=== PATIENT | male | born 1950 | race Caucasian/White ===

== ENCOUNTER → 2017-01-28 | Outpatient (CLI) | payer OTHER | LOC: FIMAGING 10:26 | PROVIDERS: ATTEND Internal Medicine Endocrinology, Diabetes & Metabolism | DX: M81.0 Age-related osteoporosis without current pathological fracture (principal) ==

== ENCOUNTER 2018-01-04 11:23 | Observation (INO) | payer OTHER ==
--- NOTE | 2018-01-04 11:53 | EDPHY ---
H & P Stated Complaint: r hand cellulitis post cat bite tuesday - Personal History Current Tetanus/Diphtheria Vaccine: Yes Tetanus Vaccine Date: 2013 - Medical/Surgical History Hx Asthma: No Hx Chronic Respiratory Disease: No Hx Diabetes: No Hx Cardiac Disease: No Hx Renal Disease: No Hx Cirrhosis: Yes Hx Alcoholism: No Hx HIV/AIDS: No Hx Splenectomy or Spleen Trauma: No Other PMH: osteoporosis, liver transplant 2008, Hep C-cleared - Social History Smoking Status: Never smoked Time Seen by Provider: 01/04/18 11:39 HPI/ROS: Chief complaint: Right hand infection from cat bite History of present illness: This is a 67-year-old male, immunocompromised as he has had a liver transplant in 2008 and is on antirejection medication, who presents to the emergency department for a right hand infection from a cat bite. He was bitten by his roommate's cat 2 days ago. He started to develope pain and redness to the hand. He did go to urgent care yesterday, x-rays were obtained and negative. He was started on Augmentin 875mg twice daily. He has taken 3 doses of the Augmentin but he states symptoms have significantly worsened. He denies other associated signs or symptoms including no red streaking up the hand, no fevers, no other injury. Review of systems: A 10 point review of systems was obtained and other than described above was negative (Sherman Allen) - Physical Exam Exam: General Appearance: Alert, nontoxic. Eyes: Pupils equal and round no injection. Respiratory: Chest is non tender, lungs are clear to auscultation. Cardiovascular: Regular rate and rhythm. Radial pulses 2+. Capillary refill brisk in all digits of the right hand. Gastrointestinal: Abdomen is soft and non tender, no masses, bowel sounds normal. Musculoskeletal: Patient is having difficulty moving his right 2nd and 3rd digit. He is moving the other digits and the right wrist well. Ambulating well. Skin: Erythema and edema to the dorsum of the right hand with extension onto the 1st and 2nd digit. No lymphedema. It is warm. Tender. No induration or fluctuance. Neurological: Alert and oriented times. Sensation intact throughout the right hand. (Sherman Allen) Constitutional: Initial Vital Signs Temperature (C) 36.4 C 01/04/18 11:28 Heart Rate 67 01/04/18 11:28 Respiratory Rate 18 01/04/18 11:28 Blood Pressure 127/85 H 01/04/18 11:28 O2 Sat (%) 94 01/04/18 11:28 O2 Delivery Mode Room Air Allergies/Adverse Reactions: furosemide [From Lasix] Allergy (Intermediate, Verified 01/04/18 11:27) Other-Enter Comments Home Medications: Medication Instructions Recorded Mycophenolate Sodium [Myfortic] 720 mg PO BID 01/10/15 Tacrolimus 2 mg PO BID 10/30/15 Amoxicillin/Clavulanate Pot 875 mg PO BID 01/04/18 [Augmentin 875 MG TAB (*)] Calcium Citrate 200 mg PO DAILY 01/04/18 Cholecalciferol Vit D3 [Vitamin D3 1,000 units PO DAILY 01/04/18 (*)] Herbals/Supplements -Info Only 1 ea PO DAILY 01/04/18 Multivitamins [Multivitamin (*)] 1 each PO DAILY 01/04/18 Pravastatin Sodium 40 mg PO HS 01/04/18 Medical Decision Making ED Course/Re-evaluation: Patient is discussed with my secondary supervising physician Dr. Amparo Frank. Patient presents to the emergency department with a worsening right hand infection after being bit by a cat. He is immunocompromised having a liver transplant non anti rejection medication. He has failed outpatient therapy with Augmentin. X-rays from yesterday were reviewed. Baseline blood studies were obtained and unremarkable. Patient will be admitted to the hospitalist service for further care. I have consulted with Infectious Disease, Dr. Jyoti Marin, she recommends Unasyn 3 g, this is ordered after blood studies obtained. The plan has been discussed with the patient who voiced understanding and agreement with it. (Sherman Allen) Differential Diagnosis: Included but not limited to cellulitis, abscess, tenosynovitis, lymphangitis, osteomyelitis (Sherman Allen) Other Provider: The patient was evaluated and managed by the Physician Drug And Alcohol Counselor. I discussed the patient's presentation and course with the midlevel provider with them and agree with the evaluation. My co-signature indicates that I have reviewed this chart and I agree with the findings and plan of care as documented. I am the secondary supervising physician. (Amparo Frnak) - Data Points Laboratory Results: Laboratory Results 01/04/18 11:55 01/04/18 11:55 Medications Given: Discontinued Medications Ampicillin Sodium/Sulbactam Sodium (Unasyn) 3 gm IV EDNOW ONE PRN Reason: Protocol Stop: 01/04/18 13:35 Last Admin: 01/04/18 14:24 Dose: 3 gm Ampicillin Sodium/Sulbactam Sodium (Unasyn) 3 gm IV Q6H JULIANA Stop: 02/03/18 20:29 Last Admin: 01/05/18 08:20 Dose: 3 gm Calcium Carbonate (Oyster Shell Calcium) 500 mg PO DAILY JULIANA Stop: 07/04/18 08:59 Last Admin: 01/05/18 08:27 Dose: 500 mg Cholecalciferol (Vitamin D) 1,000 units PO DAILY JULIANA Stop: 07/04/18 08:59 Last Admin: 01/05/18 08:27 Dose: 1,000 units Enoxaparin Sodium (Lovenox) 40 mg SC DAILY JULIANA Stop: 07/04/18 08:59 Last Admin: 01/05/18 08:30 Dose: Not Given Ibuprofen (Motrin) 800 mg PO Q8H JULIANA Stop: 07/03/18 14:59 Last Admin: 01/05/18 06:34 Dose: Not Given Multivitamins (Tab-A-Davin) 1 each PO DAILY JULIANA Stop: 07/04/18 08:59 Last Admin: 01/05/18 08:27 Dose: 1 each Mycophenolate Sodium (Myfortic) 720 mg PO BID JULIANA Stop: 07/03/18 20:59 Last Admin: 01/05/18 08:27 Dose: 720 mg Pravastatin Sodium (Pravachol) 40 mg PO HS JULIANA Stop: 07/03/18 20:59 Last Admin: 01/04/18 22:49 Dose: 40 mg Tacrolimus (Prograf) 2 mg PO BID JULIANA Stop: 07/03/18 20:59 Last Admin: 01/05/18 08:27 Dose: 2 mg Departure - Departure Disposition: [facility] Acute Clinical Impression: Cellulitis of hand Condition: Good
[2018-01-04 12:08] LABS: PLATELET COUNT 171 10^3/uL (150-400)
[2018-01-04] MEDS ORDERED: ONDANSETRON 4 MG/2 ML VIAL IVP PRN (12:56)
[2018-01-04] MEDS ORDERED: ACETAMINOPHEN 325 MG TAB PO PRN (12:56)
[2018-01-04] MEDS ORDERED: ONDANSETRON DISINTEGRATING 4 MG TAB PO PRN (12:56)
[2018-01-04] MEDS ORDERED: AMPICILLIN/SULBACTAM 3 GM VIAL IV ONE (13:34)
--- NOTE | 2018-01-04 14:50 | GHP ---
[f rep st] HISTORY AND PHYSICAL DATE OF ADMISSION: 01/04/2018 CHIEF COMPLAINT: Cat bite. HISTORY OF PRESENT ILLNESS: The patient is a 67-year-old male who presented to the emergency room after complaining of hand infection secondary to a cat bite. He was bitten by his roommate's cat 2 days ago and started to develop pain and redness of the hand. He went to the urgent care yesterday, 1 day prior, where x-rays were obtained and negative. He was started on Augmentin b.i.d. and he has taken 3 doses of Augmentin. His symptoms are worsening, have not significantly improved. He denies any fever, sweats, or night chills. He denies any dyspnea, shortness of breath, or chest pain. He denies any red streaking up his hand. No other injuries or complaints. He denies any nausea, vomiting, or diarrhea. PAST MEDICAL HISTORY: Notable for liver transplant in 2008, osteoporosis, hepatitis C. PAST SURGICAL HISTORY: Liver transplant. REVIEW OF SYSTEMS: A comprehensive 10-point review of systems is negative other than noted in the HPI. SOCIAL HISTORY: The patient has a roommate. He denies any tobacco or alcohol use. PHYSICAL EXAM: GENERAL: The patient is alert. VITAL SIGNS: Afebrile at 36.4 , pulse is 67, respiratory rate is 18, blood pressure is 127/85. He is saturating 94% on room air. HEENT: Normocephalic, atraumatic. Mucosal membranes are moist. Pupils equal, round, reactive to light. RESPIRATORY: Lungs are clear to auscultation bilaterally. No rhonchi or wheezes noted. CARDIOVASCULAR: Regular rate and rhythm. No gallop or murmur appreciated. GASTROINTESTINAL/ABDOMEN: Bowel sounds are positive. Soft and nontender. There is no guarding or rigidity noted. MUSCULOSKELETAL: The patient is having difficulty moving his right 2nd and 3rd digits of his hand. Other extremities are intact without any clubbing or cyanosis. SKIN: There is erythema and edema on the dorsal side of the right hand and 1st and 2nd digits. There are no other rashes or lesions identified. NEUROLOGICAL: The patient is focally intact. ALLERGIES: Lasix. HOME MEDICATIONS: Myfortic, tacrolimus, Augmentin, calcium citrate, vitamin D, multivitamin. FAMILY HISTORY: Reviewed and noncontributory. LABORATORY EVALUATION: CBC and metabolic panel are essentially benign. ASSESSMENT/PLAN: The patient is a 67-year-old male who presented to the emergency room with complaints of a cat bite with worsening symptoms after being initiated on 3 doses of Augmentin. He is being admitted to the hospital for intravenous antibiotic therapy. He will be initiated on intravenous Unasyn during his hospital course. There does not appear to be any fluid collections at this time. No further radiological evaluation will be done other than the x- ray from 1 day prior. We will continue to treat his symptoms supportively. His tetanus is up to date. Further action will be taken as needed during the patient's hospitalization. /[id number]/MODL MTDD
[2018-01-04] MEDS: IBUPROFEN 800 MG TAB PO SCH ×2 (15:03→23:03)
--- NOTE | 2018-01-04 16:42 | GCON ---
[f rep st] CONSULTATION INFECTIOUS DISEASE CONSULTATION DATE OF CONSULTATION: 01/04/2018 REFERRING PHYSICIAN: Laney Calixto NP REASON FOR CONSULTATION: Right hand cellulitis following cat bite. HISTORY OF PRESENT ILLNESS: 67-year-old male who underwent a liver transplant for hepatitis C in from an unrelated donor and subsequently received treatment for hepatitis C years later with [facility], now cured of hepatitis C, who was in his usual state of health on chronic immunosuppression includ ing tacrolimus 2 g b.i.d. and mycophenolate 750 mg twice daily until on 01/02/2018 patient was bit by his roommate's cat with an unknown vaccination status. The patient's Tdap is up to date, last recei con in 2013. Initially, patient just cleaned the area, but the following day his right hand knuckle started swelling, and he went to urgent care where they started him on Augmentin. Of note, patient i s left-hand dominant. After taking 3 doses of antibiotics but no hand elevation, his swelling was wo rse and, he re-presented to the emergency room today. The patient underwent an x-ray on the ch showed soft tissue swelling, no fracture. The patient does report associated subjective fevers. The pain is localized to the dorsum of his hand, and he is still able to move his fingers. He denies any history of MRSA. His last antibiotic use was a single dose after he went to the dentist. He ca nnot remember the last time he received a longer course of antibiotics. No known history of MRSA. PAST MEDICAL HISTORY: 1. Cirrhosis requiring liver transplant due to hepatitis C in 2008. The patient also has received H arvoni for treatment and is cured of hepatitis C. 2. Osteoporosis. 3. Hyperlipidemia. PAST SURGICAL HISTORY: Liver transplant. 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 He has 60 chickens, 2 dogs, 3 cats. No livestock. No tobacco or alcohol. FAMILY HISTORY: Negative for cancer, coronary artery disease. ALLERGIES: To Lasix. MEDICATIONS: Augmentin 875 twice daily, which was discontinued and he was started on Unasyn 3 g IV q .6. He is also on vitamin D, calcium supplementation, Lovenox, Motrin, multivitamin, Zofran, Pravach ol 40 mg daily. He is on Prograf 2 g p.o. b.i.d. and mycophenolate 720 twice daily. REVIEW OF SYSTEMS: A complete 10-point review of systems was performed and is negative except as men tioned in the HPI. PHYSICAL EXAM: VITAL SIGNS: BP 122/89, heart rate 72, respiratory rate 18, saturation 92% on room a ir, temperature 36.6. He has been afebrile throughout his hospital course. GENERAL: This is a very pleasant male, lying in bed with no acute distress. HEENT: Good dentition. Moist mucous membranes . No ulcer, ulcerations or exudate. NECK: Supple. No lymphadenopathy. CARDIOVASCULAR: Regular r ate and rhythm with a faint systolic murmur. CHEST: Clear to auscultation bilaterally. He had mild bilateral gynecomastia. ABDOMEN: Soft, nontender. Bowel sounds are present. He has a long right upper quadrant scar that is well healed. No fluid wave. EXTREMITIES: No clubbing, cyanosis, or tish ma. No joint swelling. Right hand: Patient has erythema and swelling associated with the 2nd digit and the dorsum of his hand overlying the 1st and 2nd metatarsals up to his wrist. There is some ten derness over the 1st metatarsal, but range of motion of his 2nd and 3rd fingers is mostly intact. Ra dial pulses 2+, and no evidence of compartment syndrome. SKIN: No rashes were noted including no sp linter hemorrhages. LABORATORY: White count 8.3, hematocrit 47, platelets of 171, 75% neutrophils, 12% lymphocytes. Cre atinine 0.8. Blood cultures were not collected. IMAGING: As per HPI. ASSESSMENT AND PLAN: 67-year-old male on chronic immunosuppression following liver transplant who pr esents with cellulitis of the hand following a cat bite. Reviewed pertinent likely pathogens includi ng Staphylococcus, Streptococcus, as well as the oral ruel of the cat including anaerobes and pasteu rella. Suspect failure to improve may be just related to he is early in the antibiotic course as wel l as lack of elevation. Exam currently less suggestive of tenosynovitis. 1. No further imaging at this time. 2. Agree with transition of Augmentin to IV Unasyn and to clinically monitor. 3. The patient strongly encouraged to elevate his hand. 4. Patient strongly desires discharge tomorrow. Will reassess first thing in the morning after elev ation and IV antibiotics overnight. 5. Thank you for this consultation. Will continue to follow. /[id number]/MODL
[2018-01-04] MEDS ORDERED: AMPICILLIN/SULBACTAM 3 GM in NS 100 ML IV SCH (20:30)
[2018-01-04 20:43] VITALS: RESP 16
[2018-01-04] MEDS ORDERED: PRAVASTATIN SODIUM 40 MG TAB PO SCH (21:00)
[2018-01-04] MEDS: MYCOPHENOLATE SODIUM 180 MG TAB.DR PO SCH (22:48)
[2018-01-04] MEDS: AMPICILLIN/SULBACTAM 3 GM VIAL IV SCH (22:48)
[2018-01-04] MEDS: TACROLIMUS 1 MG CAP PO SCH (22:49)
[2018-01-05] MEDS: AMPICILLIN/SULBACTAM 3 GM VIAL IV SCH ×2 (03:32→08:20)
[2018-01-05] MEDS: IBUPROFEN 800 MG TAB PO SCH (06:34)
[2018-01-05 07:34] VITALS: BP 105/75; PULSE 58; TEMP 97.9; O2SAT 90
--- NOTE | 2018-01-05 08:26 | PCMIDPN ---
Assessment/Plan: # R hand cellulitis s/p cat bite, improved with IV Unasyn overnight --continue elevation --dc and resume Augmentin 875 mg twice daily --reviewed antibiotic risks, side effects. If greater than 3 loose stools, severe abdominal cramping or fever please call our office for evaluation of potential complication of all antibiotics, called C. difficile-associated diarrhea . --no f/u with ID unless problems Subjective: Patient feeling significantly improved. Denies side effects to IV Unasyn Objective: Vital Signs Temp Pulse Resp BP Pulse Ox 36.6 C 58 L 16 105/75 90 L 01/05/18 07:30 01/05/18 07:30 01/05/18 07:30 01/05/18 07:30 01/05/18 07:30 - Physical Exam General Appearance: alert, no apparent distress Respiratory: No accessory muscle use Extremities: swelling (Right hand swelling approximately 40% improved), erythema (Erythema over dorsum of right hand and 2nd, 3rd digit 50% improved. No evidence of tenosynovitis on exam) Skin: No rash Neuro/Psych: alert, normal mood/affect, oriented x 3 - Time Spent With Patient Time Spent with Patient: greater than 35 minutes (Care coordinated with Dr. Jay; reviewed labs with patient and friend) Time Spent with Patient: Greater than 35 minutes spent on this patients care, greater than 50% of time spent counseling, educating, and coordinating care regarding the above mentioned plan. ICD10 Worksheet Patient Problems: Problems Problem Status Onset Cellulitis of hand Acute
[2018-01-05] MEDS: MYCOPHENOLATE SODIUM 180 MG TAB.DR PO SCH (08:27)
[2018-01-05] MEDS: TACROLIMUS 1 MG CAP PO SCH (08:27)
--- NOTE | 2018-01-05 08:53 | GDS ---
[f rep st] DISCHARGE SUMMARY DISCHARGE DIAGNOSES: 1. Right hand cellulitis secondary to cat bite. 2. History of liver transplantation. 3. Chronic immunosuppression on tacrolimus. 4. Chronic hepatitis C. CONSULTATIONS: Dr. Jyoti Marin, Infectious Disease. HISTORY: For details, please see dictated history and physical dated January 04, 2018, by Laney Calixto . In brief, the patient is a 67-year-old male with history of liver transplantation and chronic hepa titis C who presents to the emergency department with right hand redness and pain 2 days after he was bitten by a cat. He was started on Augmentin in the outpatient setting, and had just 3 doses, but h is symptoms worsened, so he presented to the ED. Given his immunosuppression, he is admitted to the hospital for IV antibiotics. HOSPITAL COURSE: Patient was admitted to med/surg unit. He was started on IV Unasyn. He reports si gnificant improvement in the redness, swelling, and pain. He has had a normal white blood cell count . He has been afebrile since admission. His vital signs are stable. There has been no evidence of sepsis. I discussed the case with Infectious Disease. The patient will discharge to home to complet e his course of oral Augmentin with activity restriction for the next few days and instructions to ke ep his right arm elevated. DISPOSITION: Patient is discharged to home in stable condition. FOLLOWUP: 1. Dr. Wilbur Adan, Primary Care. 2. [facility] for Infectious Diseases, if needed. DISCHARGE MEDICATIONS: Please see [facility] for completed outpatient medication list. There are no n ew medications on discharge. He will continue his prescription for Augmentin 875 mg p.o. b.i.d. as p reviously prescribed. /[id number]/MODL
[2018-01-05] MEDS ORDERED: MULTIVITAMINS 1 EACH TAB PO SCH (09:00)
[2018-01-05] MEDS ORDERED: ENOXAPARIN 40 MG/0.4 ML SYR SC SCH (09:00)
[2018-01-05] MEDS ORDERED: CHOLECALCIFEROL VIT D3 1,000 UNITS TAB PO SCH (09:00)
[2018-01-05] MEDS ORDERED: CALCIUM CARBONATE 500 MG TAB PO SCH (09:00)
[2018-01-05] MEDS ORDERED: Herbals/Supplements -Info Only PO SCH (09:00)
== END 2018-01-05 11:00 | disposition home or self-care (01) ==
LOC: INTOOBSV 11:56 → F3E 13:25
PROVIDERS: ADMIT Family Medicine; ATTEND Hospitalist
DX: L03.113 Cellulitis of right upper limb (principal); W55.01XA Bitten by cat, initial encounter; B18.2 Chronic viral hepatitis C; M81.0 Age-related osteoporosis without current pathological fracture; E78.5 Hyperlipidemia, unspecified; Z79.52 Long term (current) use of systemic steroids; Z94.4 Liver transplant status
CPT/HCPCS: 99285; G0378; J0295; J1650; J7507

== ENCOUNTER → 2019-02-19 | Outpatient (CLI) | payer OTHER | LOC: FIMAGING 09:33 | PROVIDERS: ATTEND Internal Medicine Endocrinology, Diabetes & Metabolism | DX: Z13.820 Encounter for screening for osteoporosis (principal); M81.0 Age-related osteoporosis without current pathological fracture ==